=== PATIENT | female | born 1945 | race Caucasian/White ===

== ENCOUNTER 2019-01-29 18:09 | Emergency (ER) | payer OTHER, MEDICARE ==
--- NOTE | 2019-01-29 19:37 | ER ---
Nurse's Notes [facility] Name: Savannah Lezama Age: 73 yrs Sex: Female : 1945 Arrival Date: 01/29/2019 Time: 18:09 Bed 9 Private MD: Dustin Garcia V Diagnosis: Nondisplaced fracture of fifth metatarsal bone, left foot Presentation: 01/29 18:38 Presenting complaint: Patient states: pain to L foot after rolling foot while walking ch in the garden. Transition of care: patient was not received from another setting of care. Onset of symptoms was January 29, 2019 at 16:00. Risk Assessment: Do you want to hurt yourself or someone else? Patient reports no desire to harm self or others. Initial Sepsis Screen: Does the patient meet any 2 criteria? No. Patient's initial sepsis screen is negative. Does the patient have a suspected source of infection? No. Patient's initial sepsis screen is negative. Care prior to arrival: None. 18:38 Method Of Arrival: Ambulatory 18:38 Acuity: DESTIN 4 ch Triage Assessment: 18:39 General: Appears in no apparent distress. comfortable, Behavior is calm, cooperative, ch appropriate for age. Pain: Complains of pain in left foot. Musculoskeletal: Circulation, motion, and sensation intact. Capillary refill < 3 seconds, in bilateral fingers. toes. Injury Description: twisted. Historical: - Allergies: 18:39 No Known Allergies; ch - PMHx: 18:39 None; ch - PSHx: 18:39 thyroid irradiated; Tonsillectomy; ch - Immunization history:: Adult Immunizations up to date. - Social history:: Smoking status: Patient/guardian denies using tobacco, Patient/guardian denies using alcohol, street drugs. - Ebola Screening: : Patient negative for fever greater than or equal to 101.5 degrees Fahrenheit, and additional compatible Ebola Virus Disease symptoms Patient denies exposure to infectious person Patient denies travel to an Ebola-affected area in the 21 days before illness onset No symptoms or risks identified at this time. Screenin:07 Abuse screen: Denies threats or abuse. Denies injuries from another. Nutritional rv screening: No deficits noted. Tuberculosis screening: No symptoms or risk factors identified. Fall Risk None identified. Assessment: 20:06 General: Appears in no apparent distress. uncomfortable, Behavior is calm, cooperative. rv Pain: Complains of pain in left foot. Neuro: Level of Consciousness is awake, alert, obeys commands, Oriented to person, place, time, situation. Cardiovascular: Capillary refill < 3 seconds. Respiratory: Airway is patent. GI: No signs and/or symptoms were reported involving the gastrointestinal system. : No signs and/or symptoms were reported regarding the genitourinary system. EENT: No signs and/or symptoms were reported regarding the EENT system. Derm: Skin is intact. Musculoskeletal: Reports pain in left foot. Vital Signs: 18:39 BP 147 / 87; Pulse 62; Resp 16; Temp 98.6; Pulse Ox 98% on R/A; Weight 65.77 kg; Height ch 5 ft. 3 in. (160.02 cm); Pain 3/10; 18:39 Body Mass Index 25.69 (65.77 kg, 160.02 cm) ED Course: 18:09 Patient arrived in ED. as 18:10 Dustin Garcia MD is Private Physician. as 18:39 Triage completed. 18:39 Arm band placed on left wrist. Patient placed in an exam room, on a stretcher. 18:41 Becki Hunter FNP-C is [facility]. kb 18:41 Steve Agrawal MD is Attending Physician. kb 19:14 Foot Left 3 View XRAY In Process Unspecified. EDMS 20:07 Patient has correct armband on for positive identification. Call light in reach. Side rv rails up X 1. Pulse ox on. 20:08 No provider procedures requiring assistance completed. Patient did not have IV access rv during this emergency room visit. Administered Medications: No medications were administered Outcome: 19:37 Discharge ordered by . kb 20:08 Discharged to home ambulatory. rv 20:08 Condition: good 20:08 Discharge instructions given to patient, family, Instructed on discharge instructions, follow up and referral plans. medication usage, Demonstrated understanding of instructions, follow-up care, medications, Prescriptions given X 1. 20:08 Patient left the ED. rv Signatures: Dispatcher [employer] EDND Becki Hunter FNP-C FNP-Ckb Hammond, Christina, RN RN Max, Nevaeh as Saurabh, Jermaine, RN RN rv
--- NOTE | 2019-01-29 19:37 | EDPHYS ---
Physician Documentation [facility] Name: Savannah Lezama Age: 73 yrs Sex: Female : 1945 Arrival Date: 01/29/2019 Time: 18:09 Bed 9 Private MD: Dustin Garcia V ED Physician Steve Agrawal HPI: 01/29 19:35 This 73 yrs old Female presents to ER via Ambulatory with complaints of Foot kb Injury. 19:35 The patient presents with an injury, pain. The complaints affect the left foot. kb Context: The problem was sustained at home, outdoors, resulted from twisting, Mechanism of Injury: Inversion the patient can fully bear weight, the patient is able to ambulate. Onset: The symptoms/episode began/occurred just prior to arrival. Modifying factors: The symptoms are alleviated by nothing, the symptoms are aggravated by weight bearing. Associated signs and symptoms: The patient has no apparent associated signs or symptoms. Severity of symptoms: At their worst the symptoms were moderate, in the emergency department the symptoms are unchanged. The patient has experienced a previous episode, on opposite foot. The patient has not recently seen a physician. Historical: - Allergies: 18:39 No Known Allergies; ch - PMHx: 18:39 None; ch - PSHx: 18:39 thyroid irradiated; Tonsillectomy; ch - Immunization history:: Adult Immunizations up to date. - Social history:: Smoking status: Patient/guardian denies using tobacco, Patient/guardian denies using alcohol, street drugs. - Ebola Screening: : Patient negative for fever greater than or equal to 101.5 degrees Fahrenheit, and additional compatible Ebola Virus Disease symptoms Patient denies exposure to infectious person Patient denies travel to an Ebola-affected area in the 21 days before illness onset No symptoms or risks identified at this time. ROS: 19:34 Constitutional: Negative for fever, chills, and weight loss, Cardiovascular: Negative kb for chest pain, palpitations, and edema, Respiratory: Negative for shortness of breath, cough, wheezing, and pleuritic chest pain, Abdomen/GI: Negative for abdominal pain, nausea, vomiting, diarrhea, and constipation, Skin: Negative for injury, rash, and discoloration, Neuro: Negative for headache, weakness, numbness, tingling, and seizure. 19:34 MS/extremity: Positive for injury or acute deformity, pain, tenderness. Exam: 19:32 Constitutional: This is a well developed, well nourished patient who is awake, alert, kb and in no acute distress. Head/Face: Normocephalic, atraumatic. Chest/axilla: Normal chest wall appearance and motion. Nontender with no deformity. No lesions are appreciated. Cardiovascular: Regular rate and rhythm with a normal S1 and S2. No gallops, murmurs, or rubs. Normal PMI, no JVD. No pulse deficits. Respiratory: Lungs have equal breath sounds bilaterally, clear to auscultation and percussion. No rales, rhonchi or wheezes noted. No increased work of breathing, no retractions or nasal flaring. Abdomen/GI: Soft, non-tender, with normal bowel sounds. No distension or tympany. No guarding or rebound. No evidence of tenderness throughout. Skin: Warm, dry with normal turgor. Normal color with no rashes, no lesions, and no evidence of cellulitis. Neuro: Awake and alert, GCS 15, oriented to person, place, time, and situation. Cranial nerves II-XII grossly intact. Motor strength 5/5 in all extremities. Sensory grossly intact. Cerebellar exam normal. Normal gait. 19:32 Musculoskeletal/extremity: Extremities: grossly normal except: noted in the dorsum of left foot: pain, tenderness, ROM: intact in all extremities, Circulation is intact in all extremities. Sensation intact. Weight bearing: able to fully bear weight. Vital Signs: 18:39 BP 147 / 87; Pulse 62; Resp 16; Temp 98.6; Pulse Ox 98% on R/A; Weight 65.77 kg; Height ch 5 ft. 3 in. (160.02 cm); Pain 3/10; 18:39 Body Mass Index 25.69 (65.77 kg, 160.02 cm) ch MDM: 18:41 Patient medically screened. kb 19:32 Data reviewed: vital signs, nurses notes. Data interpreted: Pulse oximetry: on room air kb is 98 %. Interpretation: normal. Counseling: I had a detailed discussion with the patient and/or guardian regarding: the historical points, exam findings, and any diagnostic results supporting the discharge/admit diagnosis, radiology results, the need for outpatient follow up, a orthopedic surgeon, to return to the emergency department if symptoms worsen or persist or if there are any questions or concerns that arise at home. 01/29 18:45 Order name: Foot Left 3 View XRAY; Complete Time: 19:48 kb 01/29 19:37 Order name: Post-op shoe; Complete Time: 20:06 kb Administered Medications: No medications were administered Disposition: 01/29/19 19:37 Discharged to Home. Impression: Nondisplaced fracture of fifth metatarsal bone, left foot. - Condition is Stable. - Discharge Instructions: Metatarsal Fracture. - Prescriptions for Tramadol 50 mg Oral Tablet - take 1 tablet by ORAL route every 8 hours as needed; 12 tablet. - Medication Reconciliation Form, Thank You Letter, Antibiotic Education, Prescription Opioid Use form. - Follow up: Emergency Department; When: As needed; Reason: Worsening of condition. Follow up: Private Physician; When: 2 - 3 days; Reason: Recheck today's complaints, Continuance of care, Re-evaluation by your physician. Addendum: 02/01/2019 10:11 Co-signature as Attending Physician, Steve Agrawal MD I agree with the assessment and c fair plan of care. Signatures: Dispatcher [employer] EDMS Becki Hunter, COOLER SERVICE SUPERVISOR-C COOLER SERVICE SUPERVISOR-Ckb Cortney Larson, RN RN Steve Bueno MD MD cha Vicente, Ronaldo, RN RN rv Corrections: (The following items were deleted from the chart) 01/29 20:08 19:37 01/29/2019 19:37 Discharged to Home. Impression: Nondisplaced fracture of fifth rv metatarsal bone, left foot. Condition is Stable. Forms are Medication Reconciliation Form, Thank You Letter, Antibiotic Education, Prescription Opioid Use. Follow up: Emergency Department; When: As needed; Reason: Worsening of condition. Follow up: Private Physician; When: 2 - 3 days; Reason: Recheck today's complaints, Continuance of care, Re-evaluation by your physician. kb
--- NOTE | 2019-01-29 19:47 | RAD REPORT ---
EXAM DESCRIPTION: RAD - Foot Left 3 View - 01/29/2019 7:14 pm CLINICAL HISTORY: Left Foot pain status post injury FINDINGS: An oblique lucency is present within the proximal diaphysis of the fifth metatarsal. It is equivocal for a stress fracture and should be correlated clinically. No dislocation noted The bones are osteoporotic
== END 2019-01-29 20:08 | disposition home or self-care (01) ==
LOC: ER 18:09
DX: S92.355A Nondisplaced fracture of fifth metatarsal bone, left foot, initial encounter for closed fracture (principal); X50.1XXA Overexertion from prolonged static or awkward postures, initial encounter; Y93.9 Activity, unspecified; Y92.008 Other place in unspecified non-institutional (private) residence as the place of occurrence of the external cause
CPT/HCPCS: 99283